=== PATIENT | male | born 1965 | race African-American/Black ===

== ENCOUNTER 2017-05-08 21:40 | Emergency (ER) | payer OTHER ==
[~2017-05-08] VITALS: Ht 175.3 cm; Wt 54.0 kg
[~2017-05-08 21:40] MED LIST: AMLO10TA2 PO; ASPI-110 PO; CLON0.3T PO; HYDR-3533 PO; HYDR25TA35 PO; LISI-515 PO; METO100T PO; PRAV20TA2 PO
[2017-05-08 21:44] VITALS: BP 195/103; PULSE 65; RESP 16; TEMP 97.6; O2SAT 99
== END 2017-05-08 23:30 | disposition left against medical advice (07) ==
LOC: NED 21:40
DX: G98.8 Other disorders of nervous system (principal)
CPT/HCPCS: 99281

== ENCOUNTER 2017-05-30 21:04 | Inpatient (IN) | payer OTHER ==
[~2017-05-30] VITALS: Ht 175.3 cm; Wt 67.9 kg
[2017-05-30 21:11] VITALS: BP 221/132; PULSE 82; RESP 18; TEMP 98.3; O2SAT 99
[2017-05-30 21:22] VITALS: BP 213/106; PULSE 84; RESP 16; O2SAT 99
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
[2017-05-30 21:29] VITALS: BP 191/101
[2017-05-30] MEDS ORDERED: SODIUM CHLORIDE 0.9% FLUSH 5 ML FLUSH IV FLUSH PRN (21:30)
[2017-05-30] MEDS ORDERED: LABETALOL HCL 100 MG/20 ML VIAL IV PUSH ONE (21:30)
[2017-05-30 21:38] VITALS: O2SAT 99
[2017-05-30 21:45] VITALS: BP 195/102; PULSE 76; RESP 16; O2SAT 99
--- NOTE | 2017-05-30 21:45 | RADRPT ---
EXAM DATE/TIME: 05/30/2017 21:27 [facility] COMPARISON: CT BRAIN W/O CONTRAST, March 28, 2016, 13:13. INDICATIONS : Altered mental status. RADIATION DOSE: 56.35 CTDIvol (mGy) MEDICAL HISTORY : Seizures. Hypertension. Aneurysm, intracranial.Intracranial hemorrhage. Hydrocephalus. SURGICAL HISTORY : Intracranial aneurysm repair. 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 ENCOUNTER: Initial ACUITY: 1 day PAIN SCALE: 0/10 LOCATION: cranial TECHNIQUE: Multiple contiguous axial images were obtained of the head. Using automated exposure control and adj ustment of the mA and/or kV according to patient size, radiation dose was kept as low as reasonably a chievable to obtain optimal diagnostic quality images. DICOM format image data is available electro nically for review and comparison. FINDINGS: Comparison is to 2016. Right frontal ventriculostomy tube is unchanged. There is stable encephalomala guillermo around the track of the ventriculostomy and remote infarct right basal ganglia. There is a new ar ea of decreased attenuation in the left parietal lobe that may represent a subacute infarct. Ventricu lar size is stable. Aneurysm clips noted in the suprasellar region. No acute intracranial hemorrhage identified. No acute bony abnormalities. CONCLUSION: 1. No area of decreased attenuation in the left parietal lobe measuring 2.7 cm in diameter. Primary d ifferential diagnosis is subacute infarct. 2. Stable changes of aneurysm clipping, right frontal ventriculostomy tube and stable ventricular siz e. Wiley Markham MD on May 30, 2017 at 21:39 Board Certified Radiologist. This report was verified electronically.
[2017-05-30] MEDS ORDERED: niCARdipine INJ 25 MG in SODIUM CHLOR 0.9% 250 ML INJ 250 ML IV ONE (22:00)
[2017-05-30 22:14] LABS: AUTOMATED NEUTROPHIL # 4.6 TH/MM3 (1.8-7.7); BASOPHIL % 0.6 % (0.0-2.0); EOSINOPHIL # 0.1 TH/MM3 (0-0.4); HEMATOCRIT 43.4 % (39.0-51.0); HEMO FLAGS DIFF FINAL; LYMPHOCYTE # 2.5 TH/MM3 (1.0-4.8); MEAN CELL VOLUME 93.7 FL (80.0-100.0); MEAN CORPUSCULAR HEMOGLOBIN 32.2 PG (27.0-34.0); MEAN CORPUSCULAR HGB CONC 34.3 % (32.0-36.0); MONO % 8.1 % (0.0-8.0); NEUT % 58.3 % (16.0-70.0); PLATELET COUNT 259 TH/MM3 (150-450); RED BLOOD COUNT 4.63 MIL/MM3 (4.50-5.90); RED CELL DISTRIBUTION WIDTH 14.4 % (11.6-17.2); WHITE BLOOD COUNT 7.9 TH/MM3 (4.0-11.0)
[2017-05-30 22:18] LABS: BACTERIA, URINE RARE /hpf; BLOOD, URINE SMALL (NEG); COMMENT (UR) CATH-CULTURE IND; CULTURE IF INDICATED CATH CULTURE IND; GLUCOSE,URINE NEG (NEG); HYALINE CAST, URINE 3 /lpf (RARE); KETONE, URINE 40 mg/dL (NEG); MUCUS URINE FEW /lpf (OCC); NITRITE,URINE NEG (NEG); PH, URINE 5.5 (5.0-8.5); SQUAMOUS EPITHELIAL CELL URINE <1 /hpf (0-5); URINE COLOR YELLOW (YELLW/STRAW)
[2017-05-30 22:25] LABS: APTT (PATIENT) 30.9 SEC (24.3-30.1); PROTHROMBIN TIME - PATIENT 11.1 SEC (9.8-11.6)
--- NOTE | 2017-05-30 22:33 | RADRPT ---
EXAM DATE/TIME: 05/30/2017 21:50 [facility] COMPARISON: CHEST SINGLE AP, March 01, 2016, 9:52. INDICATIONS : Short of breath MEDICAL HISTORY : Seizures. Hypertension. Aneurysm, intracranial. Intracranial hemorrhage; SURGICAL HISTORY : Intracranial aneurysm repair. 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 ENCOUNTER: Initial ACUITY: 1 day PAIN SCORE: 0/10 LOCATION: Bilateral chest FINDINGS: A single view of the chest demonstrates shunt tubing overlying the right hemithorax. No focal consoli dation or significant effusion. No pneumothorax. CONCLUSION: 1. No active disease. Wiley Markham MD on May 30, 2017 at 22:29 Board Certified Radiologist. This report was verified electronically.
[2017-05-30 22:50] LABS: ALKALINE PHOSPHATASE 136 U/L (45-117); ALT (GPT) 25 U/L (12-78); ANION GAP 11 MEQ/L (5-15); AST (GOT) 11 U/L (15-37); BICARBONATE 26.8 MEQ/L (21.0-32.0); BLOOD UREA NITROGEN 12 MG/DL (7-18); CHLORIDE 103 MEQ/L (98-107); GLOMERULAR FILTRATION RATE 90 ML/MIN (>89); MAGNESIUM 2.4 MG/DL (1.5-2.5); SODIUM (NA) 141 MEQ/L (136-145); TOTAL BILIRUBIN ADULT 0.4 MG/DL (0.2-1.0)
--- NOTE | 2017-05-30 22:50 | HHI.HP ---
HPI Service Critical Care Medicine Primary Care Physician Unknown Admission Diagnosis hypertensive emergnecy, ams, subacute CVA Diagnosis: Travel History International Travel<30 Days: No Contact w/Intl Traveler <30 Da: No Traveled to Known Affected Are: No History of Present Illness 51-year-old male presents for altered mental status. The patient started with altered mental status last night. His son came to visit him today and was told by his nephew that he was altered. 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 Patient was hypertensive and was placed on a Cardene drip. At that time. The patient has been doing well and was oriented until last night. The patient does not answer any question appropriately including his name and does not know where he is. The patient's daughter at the bedside admits that patient was here with the same symptoms 2 weeks ago, however while awaiting ER evaluation in the triage he returned to his baseline and was oriented 3 and demand to leave. 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 COUNSELOR shunt Reported Medications Reported Meds & Active Scripts Active Lortab (Hydrocodone-Acetaminophen) 5-325 Mg Tab 1 Tab PO TID PRN Hydralazine (Hydralazine HCl) 25 Mg Tab 75 Mg PO TID 30 Days Take with a meal Aspirin 81 (Aspirin) 81 Mg Tabdr 81 Mg PO DAILY Pravastatin 20 Mg Tab 20 Mg PO HS Amlodipine (Amlodipine Besylate) 10 Mg Tab 10 Mg PO DAILY Clonidine (Clonidine HCl) 0.3 Mg Tab 0.3 Mg PO Q8HR Metoprolol Tartrate 100 Mg Tab 100 Mg PO BID Lisinopril 20 Mg Tab 20 Mg PO BID Active Ordered Medications Current Medications Medications (Trade) Dose Ordered Sig/Edmundo Route PRN Reason Start Time Stop Time Status Last Admin Dose Admin IV Flush (NS Flush) 2 ml UNSCH PRN IV FLUSH FLUSH AFTER USING IV ACCESS 05/30/17 21:30 05/30/17 21:41 Amlodipine Besylate (Norvasc) 10 mg DAILY PO 05/31/17 09:00 Aspirin (Ecotrin Ec) 81 mg DAILY PO 05/31/17 09:00 Clonidine (Catapres) 0.3 mg Q8HR PO 05/31/17 06:00 Acetaminophen/ Hydrocodone Bitart (Randolph 5-325 Mg) 1 tab TID PRN PO PAIN 05/30/17 23:00 Metoprolol Tartrate (Lopressor) 100 mg BID PO 05/31/17 09:00 Pravastatin Sodium (Pravachol) 20 mg HS PO 05/31/17 21:00 Sodium Chloride 1,000 ml @ 84 mls/hr [id number] IV 05/30/17 22:50 05/31/17 00:34 Sodium Chloride (NS Flush) 2 ml UNSCH PRN .XX FLUSH AFTER USING IV ACCESS 05/30/17 23:00 Sodium Chloride (NS Flush) 2 ml BID .XX 05/31/17 09:00 Acetaminophen (Tylenol) 650 mg Q6H PRN PO PAIN 1-10 AND/OR FEVER >101F 05/30/17 23:00 Morphine Sulfate (Morphine Inj) 2 mg Q2H PRN IV PAIN SCALE 6 TO 10 05/30/17 23:00 Famotidine (Pepcid Inj) 20 mg Q12HR IV PUSH 05/31/17 09:00 Ondansetron HCl (Zofran Inj) 4 mg Q6H PRN IV NAUSEA OR VOMITING 05/30/17 23:00 Albuterol/ Ipratropium (Duoneb Neb) 1 ampule Q2HR NEB PRN INH WHEEZING 05/30/17 23:00 Miscellaneous Information 1 Q361D XX 05/30/17 23:00 Chlorhexidine Gluconate (Chlorhexidine 2% Cloth) 3 pack Taper DAILY@04 TOP 05/31/17 04:00 05/27/18 03:59 Chlorhexidine Gluconate (Chlorhexidine 2% Cloth) 3 pack UNSCH PRN TOP HYGIENIC CARE 05/30/17 23:00 Senna/Docusate Sodium (Zaida-Colace) 1 tab BID PO 05/31/17 09:00 Magnesium Hydroxide (Milk Of Magnesia Liq) 30 ml Q12H PRN PO MILD - MODERATE CONSTIPATION 05/30/17 23:00 Sennosides (Senokot) 17.2 mg Q12H PRN PO MODERATE - SEVERE CONSTIPATION 05/30/17 23:00 Bisacodyl (Dulcolax Supp) 10 mg DAILY PRN RECTAL SEVERE CONSITIPATION 05/30/17 23:00 Lactulose (Lactulose Liq) 30 ml DAILY PRN PO SEVERE CONSITIPATION 05/30/17 23:00 Levetriacetam 100 ml @ 400 mls/hr Q12HR IV 05/31/17 09:00 Hydralazine HCl (Apresoline Inj) 20 mg Q4H PRN IV PUSH SBP>160, DBP>90 05/30/17 23:00 Labetalol HCl (Trandate Inj) 10 mg Q4H PRN IV PUSH SBP>160, DBP>90 05/30/17 23:00 Potassium Chloride 100 ml @ 50 mls/hr Q2H IV 05/30/17 23:00 05/31/17 02:59 05/31/17 00:34 Heparin Sodium (Porcine) (Heparin Inj) 5,000 units Q12HR SQ 05/31/17 09:00 Family History No family history of early coronary artery disease or malignancy Social History Remote history of cocaine and ecstasy use No known history of tobacco or alcoholism Physical Exam Vital Signs Vital Signs Date Time Temp Pulse Resp B/P (MAP) Pulse Ox O2 Delivery O2 Flow Rate FiO2 05/30/17 22:24 92 192/111 05/30/17 21:45 76 16 195/102 (133) 99 Room Air 05/30/17 21:38 99 Room Air 05/30/17 21:29 191/101 (131) 05/30/17 21:22 84 16 213/106 (141) 99 Room Air 05/30/17 21:16 99 Room Air 05/30/17 21:11 98.3 82 18 221/132 (161) 99 Physical Exam GENERAL: Well-nourished, well-developed patient. Extremely confused SKIN: Warm and dry. HEAD: Normocephalic. EYES: No scleral icterus. No injection or drainage. NECK: Supple, trachea midline. No JVD or lymphadenopathy. CARDIOVASCULAR: Regular rate and rhythm without murmurs, gallops, or rubs. RESPIRATORY: Breath sounds equal bilaterally. No accessory muscle use. GASTROINTESTINAL: Abdomen soft, non-tender, nondistended. MUSCULOSKELETAL: No cyanosis, or edema. BACK: Nontender without obvious deformity. NEURO EXAM: GCS: M 6 V4 E4 Mental Status: The patient is confused, not oriented to place time or person Cranial Nerves: Pupils are round, reactive to light. Extraocular movements are intact without ptosis. Hearing is normal bilaterally. Voice is normal. Tongue protrudes midline and moves symmetrically. Reflexes: Biceps, patellar, and Achilles are 2/4 bilaterally. No clonus. Sensation: Unable to examine Motor: Good muscle tone. Strength is 5/5 bilaterally. Laboratory Laboratory Tests Test 05/30/17 21:20 05/30/17 21:40 05/30/17 21:48 White Blood Count 7.9 Red Blood Count 4.63 Hemoglobin 14.9 Hematocrit 43.4 Mean Corpuscular Volume 93.7 Mean Corpuscular Hemoglobin 32.2 Mean Corpuscular Hemoglobin Concent 34.3 Red Cell Distribution Width 14.4 Platelet Count 259 Mean Platelet Volume 8.1 Neutrophils (%) (Auto) 58.3 Lymphocytes (%) (Auto) 32.0 Monocytes (%) (Auto) 8.1 Eosinophils (%) (Auto) 1.0 Basophils (%) (Auto) 0.6 Neutrophils # (Auto) 4.6 Lymphocytes # (Auto) 2.5 Monocytes # (Auto) 0.6 Eosinophils # (Auto) 0.1 Basophils # (Auto) 0.0 CBC Comment DIFF FINAL Differential Comment Prothrombin Time 11.1 Prothromb Time International Ratio 1.0 Activated Partial Thromboplast Time 30.9 Urine Color YELLOW Urine Turbidity CLEAR Urine pH 5.5 Urine Specific [place] 1.022 Urine Protein TRACE Urine Glucose (UA) NEG Urine Ketones 40 Urine Occult Blood SMALL Urine Nitrite NEG Urine Bilirubin NEG Urine Urobilinogen LESS THAN 2.0 Urine Leukocyte Esterase NEG Urine RBC 3 Urine WBC 2 Urine Squamous Epithelial Cells <1 Urine Bacteria RARE Urine Hyaline Casts 3 Urine Mucus FEW Urine Sperm RARE Microscopic Urinalysis Comment CATH-CULTURE IND Urine Opiates Screen NEG Urine Barbiturates Screen NEG Urine Amphetamines Screen NEG Urine Benzodiazepines Screen NEG Urine Cocaine Screen NEG Urine Cannabinoids Screen POS Lactic Acid Level 1.2 Ammonia 24 Date/Time Source Procedure Growth Status 05/30/17 21:40 Urine Catheterized Urine Urine Culture Pending Received Result Diagram: 05/30/172119 Imaging Last [address] 05/30/172121 Signed Impressions: Service Date/Time: Tuesday, May 30, 2017 21:27 - CONCLUSION: 1. No area of decreased attenuation in the left parietal lobe measuring 2.7 cm in diameter. Primary differential diagnosis is subacute infarct. 2. Stable changes of aneurysm clipping, right frontal ventriculostomy tube and stable ventricular size. Wiley Markham MD Chest X-Ray 05/30/172121 Signed Impressions: Service Date/Time: Tuesday, May 30, 2017 21:50 - CONCLUSION: 1. No active disease. Wiley Markham MD Caprini VTE Risk Assessment Caprini VTE Risk Assessment: Mod/High Risk (score >= 2) Caprini Risk Assessment Model Point Value = 1 Point Value = 2 Point Value = 3 Point Value = 5 Age 41-60 Minor surgery BMI > 25 kg/m2 Swollen legs Varicose veins or History of unexplained or recurrent spontaneous Oral contraceptives or hormone replacement Sepsis (< 1 month) Serious lung disease, including pneumonia (< 1 month) Abnormal pulmonary function Acute myocardial infarction Congestive heart failure (< 1 month) History of inflammatory bowel disease Medical patient at bed rest Age 61-74 Arthroscopic surgery Major open surgery (> 45 min) Laparoscopic surgery (> 45 min) Malignancy Confined to bed (> 72 hours) Immobilizing plaster cast Central venous access Age >= 75 History of VTE Family history of VTE Factor V Leiden Prothrombin [id number] Lupus anticoagulant Anticardiolipin antibodies Elevated serum homocysteine Heparin-induced thrombocytopenia Other congenital or acquired thrombophilia Stroke (< 1 month) Elective arthroplasty Hip, pelvis, or leg fracture Acute spinal cord injury (< 1 month) Prophylaxis Regimen Total Risk Factor Score Risk Level Prophylaxis Regimen 0-1 Low Early ambulation 2 Moderate Order ONE of the following: *Sequential Compression Device (SCD) *Heparin 5000 units SQ BID 3-4 Higher Order ONE of the following medications: *Heparin 5000 units SQ TID *Enoxaparin/Lovenox 40 mg SQ daily (WT < 150 kg, CrCl > 30 mL/min) *Enoxaparin/Lovenox 30 mg SQ daily (WT < 150 kg, CrCl > 10-29 mL/min) *Enoxaparin/Lovenox 30 mg SQ BID (WT < 150 kg, CrCl > 30 mL/min) AND/OR *Sequential Compression Device (SCD) 5 or more Highest Order ONE of the following medications: *Heparin 5000 units SQ TID (Preferred with Epidurals) *Enoxaparin/Lovenox 40 mg SQ daily (WT < 150 kg, CrCl > 30 mL/min) *Enoxaparin/Lovenox 30 mg SQ daily (WT < 150 kg, CrCl > 10-29 mL/min) *Enoxaparin/Lovenox 30 mg SQ BID (WT < 150 kg, CrCl > 30 mL/min) AND *Sequential Compression Device (SCD) Assessment and Plan Assessment and Plan Altered mental status - Subacute stroke - Keppra seizure prophylaxis - MRI brain - EEG to rule out subclinical seizure and postictal state - Neurology consult - Hypertensive encephalopathy??? Hypertension - Cardene drip - Hydralazine and labetalol when necessary - SBP goal 170-180 Hypokalemia - Electrolytes replacement per ICU protocol DVT GI prophylaxis - Teds SCDs - Subcutaneous heparin and Pepcid Critical Care: The total critical care time was 35 minutes. Time to perform other separately billable procedures was not included in the critical care time. Adria Lees MD May 30, 2017 22:50
[2017-05-30 22:56] LABS: ALCOHOL 4 MG/DL (0-5); CREATINE KINASE 81 U/L (39-308)
[2017-05-30 22:58] LABS: POTASSIUM 2.9 MEQ/L (3.5-5.1)
[2017-05-30] MEDS ORDERED: MORPHINE SULFATE 4 MG/ML INJ IV PRN (23:00)
[2017-05-30] MEDS ORDERED: LABETALOL HCL 100 MG/20 ML VIAL IV PUSH PRN (23:00)
[2017-05-30] MEDS ORDERED: ONDANSETRON HCL 4 MG/2 ML VIAL IV PRN (23:00)
[2017-05-30] MEDS ORDERED: LACTULOSE SYRUP 20 GM/30 ML CUP PO PRN (23:00)
[2017-05-30] MEDS ORDERED: hydrALAZINE HCL 20 MG/ML VIAL IV PUSH PRN (23:00)
[2017-05-30] MEDS ORDERED: HEPARIN SODIUM - SQ 10,000 UNITS/ML VIAL SQ SCH (23:00)
[2017-05-30] MEDS ORDERED: SENNOSIDES 8.6 MG TAB PO PRN (23:00)
[2017-05-30] MEDS ORDERED: BISACODYL 10 MG SUPP RECTAL PRN (23:00)
[2017-05-30] MEDS ORDERED: ACETAMINOPHEN/HYDROcodone 325 MG/5 MG TAB PO PRN (23:00)
[2017-05-30] MEDS ORDERED: SODIUM CHLORIDE 0.9% FLUSH 10 ML FLUSH PRN (23:00)
[2017-05-30] MEDS ORDERED: MAGNESIUM HYDROXIDE SUSP 30 ML CUP PO PRN (23:00)
[2017-05-30] MEDS ORDERED: CHLORHEXIDINE GLUCONATE 2 % 1 PACK (2 CLOTHS) TOP PRN (23:00)
[2017-05-30] MEDS ORDERED: RESP: ALBUTEROL 2.5 MG/IPRATROPIUM 0.5 MG NEB (PRN) INH (23:00)
[2017-05-30] MEDS ORDERED: ACETAMINOPHEN 325 MG TAB PO PRN (23:00)
[2017-05-30] MEDS ORDERED: MISCELLANEOUS NURSING INFORMATION XX SCH (23:00)
[2017-05-31] VITALS (14 sets, daily range): BP systolic 132–196; BP diastolic 65–104; PULSE 69–91; RESP 15–25; TEMP 98–98.9; O2SAT 97–98
[2017-05-31] MEDS: POTASSIUM CHLOR 20 MEQ PREMIX 100 ML IV SCH ×2 (00:34→02:40)
[2017-05-31] MEDS: SODIUM CHLOR 0.9% 1000 ML INJ 1,000 ML IV SCH ×2 (00:34→18:33)
[2017-05-31] MEDS ORDERED: POTASSIUM CHLOR 20 MEQ PREMIX 100 ML IV PRN ×2 (02:15)
[2017-05-31] MEDS ORDERED: MAGNESIUM OXIDE 400 MG TAB PO PRN (02:15)
[2017-05-31] MEDS ORDERED: SODIUM PHOSPHATE INJ 30 MMOL in SODIUM CHLOR 0.9% 250 ML INJ 240 ML IV PRN (02:15)
[2017-05-31] MEDS ORDERED: POTASSIUM PHOSPHATE MONOBASIC 500 MG TAB PO/TUBE PRN (02:15)
[2017-05-31] MEDS ORDERED: MAGNESIUM SULFATE INJ 2 GM in SODIUM CHLORIDE 0.9% INJ 96 ML IV PRN (02:15)
[2017-05-31] MEDS ORDERED: POTASSIUM PHOSPHATE MONOBASIC 500 MG TAB PO PRN (02:15)
[2017-05-31] MEDS ORDERED: POTASSIUM PHOSPHATE INJ 30 MMOL in SODIUM CHLOR 0.9% 250 ML INJ 250 ML IV PRN (02:15)
[2017-05-31] MEDS ORDERED: POTASSIUM CHLORIDE 25 MEQ EFFERVESCENT TAB PO PRN (02:15)
[2017-05-31] MEDS ORDERED: POTASSIUM CHLOR 40 MEQ PREMIX 100 ML IV PRN ×2 (02:15)
[2017-05-31] MEDS ORDERED: MAGNESIUM SULFATE INJ 4 GM in SODIUM CHLORIDE 0.9% INJ 92 ML IV PRN (02:15)
[2017-05-31] MEDS ORDERED: SODIUM CHLOR 0.9% 250 ML INJ 250 ML ONE ×2 (02:31→06:12)
[2017-05-31] MEDS: CHLORHEXIDINE GLUCONATE 2 % 1 PACK (2 CLOTHS) TOP SCH (04:00)
[2017-05-31 04:30] LABS: AUTOMATED NEUTROPHIL # 5.1 TH/MM3 (1.8-7.7); BASOPHIL # 0.1 TH/MM3 (0-0.2); BASOPHIL % 0.6 % (0.0-2.0); EOSINOPHIL # 0.1 TH/MM3 (0-0.4); EOSINOPHIL % 1.4 % (0.0-4.0); HEMATOCRIT 43.9 % (39.0-51.0); HEMO FLAGS DIFF FINAL; LYMPH % 33.6 % (9.0-44.0); MEAN CELL VOLUME 93.7 FL (80.0-100.0); MEAN CORPUSCULAR HEMOGLOBIN 31.4 PG (27.0-34.0); MEAN CORPUSCULAR HGB CONC 33.5 % (32.0-36.0); MONO % 7.5 % (0.0-8.0); NEUT % 56.9 % (16.0-70.0); PLATELET COUNT 285 TH/MM3 (150-450); RED BLOOD COUNT 4.69 MIL/MM3 (4.50-5.90); RED CELL DISTRIBUTION WIDTH 14.2 % (11.6-17.2)
[2017-05-31] MEDS ORDERED: niCARdipine INJ 25 MG in SODIUM CHLOR 0.9% 250 ML INJ 250 ML IV PRN (04:30)
[2017-05-31] MEDS: niCARdipine INJ 25 MG in SODIUM CHLOR 0.9% 250 ML INJ 250 ML IV PRN ×2 (04:37→06:16)
[2017-05-31 04:56] LABS: ANION GAP 7 MEQ/L (5-15); AST (GOT) 10 U/L (15-37); BICARBONATE 27.7 MEQ/L (21.0-32.0); BLOOD UREA NITROGEN 10 MG/DL (7-18); CHLORIDE 105 MEQ/L (98-107); GLOMERULAR FILTRATION RATE 108 ML/MIN (>89); MAGNESIUM 2.4 MG/DL (1.5-2.5); POTASSIUM 3.3 MEQ/L (3.5-5.1); SODIUM (NA) 140 MEQ/L (136-145)
[2017-05-31 04:57] LABS: ALT (GPT) 25 U/L (12-78)
[2017-05-31 05:00] LABS: ALKALINE PHOSPHATASE 139 U/L (45-117); TOTAL BILIRUBIN ADULT 0.4 MG/DL (0.2-1.0)
[2017-05-31] MEDS: cloNIDine HCL 0.3 MG TAB PO SCH ×4 (06:00→21:12)
--- NOTE | 2017-05-31 08:25 | EKG ---
Date Performed: 05/30/2017 Time Performed: 21:15:46 PTAGE: 51 years EKG: Sinus rhythm LEFT VENTRICULAR HYPERTROPHY AND ST-T CHANGE ABNORMAL ECG PREVIOUS TRACING : 02/01/2016 12.18 Compared to previous tracing, QRS voltage has increased dif fusely. DOCTOR: Sergey Ventura Interpretating Date/Time 05/31/2017 08:24:02
[2017-05-31] MEDS: SODIUM CHLORIDE 0.9% FLUSH 10 ML FLUSH SCH ×2 (08:49→21:00)
[2017-05-31] MEDS: HEPARIN SODIUM - SQ 10,000 UNITS/ML VIAL SQ SCH ×2 (08:49→21:13)
[2017-05-31] MEDS: FAMOTIDINE 20 MG/2 ML VIAL IV PUSH SCH ×2 (08:49→21:12)
[2017-05-31] MEDS: levETIRAcetam 1000 MG INJ 100 ML IV SCH ×2 (08:50→21:12)
[2017-05-31 09:48] LABS: POTASSIUM 3.2 MEQ/L (3.5-5.1)
[2017-05-31 09:54] LABS: MAGNESIUM 2.2 MG/DL (1.5-2.5)
[2017-05-31] MEDS ORDERED: niCARdipine INJ 50 MG in SODIUM CHLOR 0.9% 250 ML INJ 250 ML IV PRN (10:00)
[2017-05-31] MEDS: ASPIRIN EC 81 MG TABEC PO SCH (11:11)
[2017-05-31] MEDS: DOCUSATE SODIUM 50 MG/SENNA 8.6 MG TAB PO SCH ×2 (11:11→21:13)
[2017-05-31] MEDS: METOPROLOL TARTRATE 100 MG TAB PO SCH ×2 (11:13→21:13)
--- NOTE | 2017-05-31 12:22 | MG ---
cc: VERITO MARADIAGA MD Lab No: Date: 05/31/2017 Age: 51 Sex: M Race: DATE OF [address] Diallo MEDICAL HISTORY History of hypertension. Cocaine and Ecstasy. Headaches. Syncope. History of frontal ventriculostomy tube, aneurysmal clipping. MEDICATIONS 1. Nicardipine. 2. Hydralazine. 3. Trandate. DESCRIPTION There is generalized slowing on the EEG recording with polymorphic low voltage, delta and theta. At times there is frontal intermittent rhythmic delta activity (FIRDA). There is T3 breach rhythm. Photic stimulation did not elicit a driving response. Hyperventilation was not done. There were no electrographic seizures or epileptiform discharges noted. INTERPRETATION This is an abnormal EEG.The generalized slowing may indicate an encephalopathic pattern. T3 breach rhythm may indicate structural abnormality or conductance defect. There is no epileptiform discharges or any ictal activity noted. Clinical correlation is recommended. Verito Maradiaga MD RGO/SSB /11:30 AM /12:12 PM [facility]
--- NOTE | 2017-05-31 16:59 | HHI.CCPN ---
Subjective Remarks/Hospital Course 05/30: 51-year-old male presents for altered mental status. The patient started with altered mental status last night. His son came to visit him today and was told by his nephew that he was altered. 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 Patient was hypertensive and was placed on a Cardene drip. At that time. The patient has been doing well and was oriented until last night. The patient does not answer any question appropriately including his name and does not know where he is. The patient's daughter at the bedside admits that patient was here with the same symptoms 2 weeks ago, however while awaiting ER evaluation in the triage he returned to his baseline and was oriented 3 and demand to leave. 05/31: Resting in bed. Still confused. Does not follow verbal commands however can imitate actions. Nonverbal. Objective Vital Signs Date Time Temp Pulse Resp B/P (MAP) Pulse Ox O2 Delivery O2 Flow Rate FiO2 05/31/17 12:00 81 05/31/17 12:00 98.6 15 160/78 (105) 98 05/31/17 08:00 Room Air Intake and Output 05/31/17 05/31/17 06/01/17 08:00 16:00 00:00 Intake Total 450 ml 360 ml Balance 450 ml 360 ml Result Diagram: 05/31/17 0417 05/31/17 0900 Imaging Last [address] 05/30/172121 Signed Impressions: Service Date/Time: Tuesday, May 30, 2017 21:27 - CONCLUSION: 1. No area of decreased attenuation in the left parietal lobe measuring 2.7 cm in diameter. Primary differential diagnosis is subacute infarct. 2. Stable changes of aneurysm clipping, right frontal ventriculostomy tube and stable ventricular size. Wiley Markham MD Chest X-Ray 05/30/172121 Signed Impressions: Service Date/Time: Tuesday, May 30, 2017 21:50 - CONCLUSION: 1. No active disease. Wiley Markham MD Objective Remarks GENERAL: Well-nourished, well-developed patient. Extremely confused SKIN: Warm and dry. HEAD: Normocephalic. EYES: No scleral icterus. No injection or drainage. NECK: Supple, trachea midline. No JVD or lymphadenopathy. CARDIOVASCULAR: Regular rate and rhythm without murmurs, gallops, or rubs. RESPIRATORY: Breath sounds equal bilaterally. No accessory muscle use. GASTROINTESTINAL: Abdomen soft, non-tender, nondistended. MUSCULOSKELETAL: No cyanosis, or edema. BACK: Nontender without obvious deformity. NEURO EXAM: GCS: M 6 V4 E4 Mental Status: The patient is confused, not oriented to place time or person Cranial Nerves: Pupils are round, reactive to light. Extraocular movements are intact without ptosis. Hearing is normal bilaterally. Voice is normal. Tongue protrudes midline and moves symmetrically. Not following verbal commands however can imitate actions.. Reflexes: Biceps, patellar, and Achilles are 2/4 bilaterally. No clonus. Sensation: Unable to examine Motor: Good muscle tone. Strength is 5/5 bilaterally. A/P Assessment and Plan Altered mental status - Subacute stroke - Keppra seizure prophylaxis - MRI brain - EEG to rule out subclinical seizure and postictal state - Neurology consulted, discussed with Dr. Polk this morning. - Hypertensive encephalopathy??? Hypertension - Cardene drip - Hydralazine and labetalol when necessary. Resume amlodipine. - SBP goal 170-180 Hypokalemia - Electrolytes replacement per ICU protocol DVT GI prophylaxis - Teds SCDs - Subcutaneous heparin and Pepcid Critical Care: The total critical care time was 35 minutes. Time to perform other separately billable procedures was not included in the critical care time. Jm Frost MD May 31, 2017 16:58
[2017-05-31] MEDS: hydrALAZINE HCL 25 MG TAB PO SCH (18:07)
[2017-05-31] MEDS ORDERED: SODIUM CHLORIDE 0.9% FLUSH 5 ML FLUSH IV FLUSH PRN (18:15)
[2017-05-31] MEDS ORDERED: DEXTROSE 50% IN WATER 50 ML VIAL(D50) IV PUSH PRN (18:15)
[2017-05-31] MEDS ORDERED: GLUCAGON 1 MG/ML VIAL OTHER PRN (18:15)
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
[2017-05-31] MEDS ORDERED: SODIUM CHLORIDE 0.9% FLUSH 5 ML FLUSH IV FLUSH SCH (21:00)
[2017-05-31] MEDS: INSULIN ASPART SUPPLEMENTAL SCALE SQ SCH (21:00)
[2017-05-31] MEDS: PRAVASTATIN SOD 20 MG TAB PO SCH (21:13)
[2017-05-31 22:34] LABS: HEMOGLOBIN A1a 1.1 %; HEMOGLOBIN A1b 1.7 %; HEMOGLOBIN Ao 86.2 %; HEMOGLOBIN LA1C 1.4 %; HEMOGLOBIN P3 3.5 %
[2017-06-01] VITALS (13 sets, daily range): BP systolic 137–191; BP diastolic 70–84; PULSE 55–82; RESP 12–40; TEMP 98–98.8; O2SAT 96–100
[2017-06-01] MEDS: CHLORHEXIDINE GLUCONATE 2 % 1 PACK (2 CLOTHS) TOP SCH (04:00)
[2017-06-01 05:20] LABS: HDL CHOLESTEROL 42.7 MG/DL (40.0-60.0)
[2017-06-01] MEDS: cloNIDine HCL 0.3 MG TAB PO SCH ×3 (05:37→21:08)
[2017-06-01] MEDS: INSULIN ASPART SUPPLEMENTAL SCALE SQ SCH ×3 (07:00→15:48)
[2017-06-01] MEDS: METOPROLOL TARTRATE 100 MG TAB PO SCH ×2 (08:17→21:08)
[2017-06-01] MEDS: hydrALAZINE HCL 25 MG TAB PO SCH ×3 (08:17→18:00)
[2017-06-01] MEDS: levETIRAcetam 1000 MG INJ 100 ML IV SCH ×2 (08:17→21:10)
[2017-06-01] MEDS: DOCUSATE SODIUM 50 MG/SENNA 8.6 MG TAB PO SCH ×2 (08:18→21:08)
[2017-06-01] MEDS: ASPIRIN EC 81 MG TABEC PO SCH (08:18)
[2017-06-01] MEDS: HEPARIN SODIUM - SQ 10,000 UNITS/ML VIAL SQ SCH ×2 (08:19→21:09)
[2017-06-01] MEDS: SODIUM CHLORIDE 0.9% FLUSH 10 ML FLUSH SCH ×2 (08:20→21:10)
[2017-06-01] MEDS: FAMOTIDINE 20 MG/2 ML VIAL IV PUSH SCH ×2 (08:20→21:09)
--- NOTE | 2017-06-01 09:29 | PD.CONS ---
HPI Service CV Consult Requested By Reason for Consult CVA Primary Care Physician Unknown History of Present Illness Here with history of CVA and cerebral aneurysm coiled in 2016 s/p HEALTH ANALYTICS CONSULTANT shunt who presents with acute inability to talk. Now he can not tell me where he is, what year it is or who is the POTUS. He is unable to answer any of my questions. He is in sinus rhythm this morning. He is not on telemetry. (Jonah Nuñez) Review of Systems ROS Limitations: Clinical Condition (Jonah Nuñez) Past Family Social History Allergies: Coded Allergies: penicillin G (Unverified Allergy, Intermediate, RASH/ITCHING, 05/30/17) lisinopril (Verified Adverse Reaction, Severe, Anaphylaxis, 05/31/17) angioedema Uncoded Allergies: PCN / rash / itching (Allergy, Mild, 02/14/16) Pt states he has an allergy to PCN / will verify with Past Medical History see HPI Remote history of cocaine and ecstasy use as per chart review LORRAINE aneurysm rupture with obstructive hydrocephalus in January 2016 Past Surgical History see HPI Reported Medications Reported Meds & Active Scripts Active Lortab (Hydrocodone-Acetaminophen) 5-325 Mg Tab 1 Tab PO TID PRN Hydralazine (Hydralazine HCl) 25 Mg Tab 75 Mg PO TID 30 Days Take with a meal Aspirin 81 (Aspirin) 81 Mg Tabdr 81 Mg PO DAILY Pravastatin 20 Mg Tab 20 Mg PO HS Amlodipine (Amlodipine Besylate) 10 Mg Tab 10 Mg PO DAILY Clonidine (Clonidine HCl) 0.3 Mg Tab 0.3 Mg PO Q8HR Metoprolol Tartrate 100 Mg Tab 100 Mg PO BID Lisinopril 20 Mg Tab 20 Mg PO BID Active Ordered Medications Current Medications Medications (Trade) Dose Ordered Sig/Edmundo Route Start Time Stop Time Status Last Admin (Norvasc) 10 mg DAILY PO 05/31/17 09:00 06/01/17 08:18 (Ecotrin Ec) 81 mg DAILY PO 05/31/17 09:00 06/01/17 08:18 (Catapres) 0.3 mg Q8HR PO 05/31/17 06:00 06/01/17 05:37 ([place] 5-325 Mg) 1 tab TID PRN PO 05/30/17 23:00 (Lopressor) 100 mg BID PO 05/31/17 09:00 06/01/17 08:17 (Pravachol) 20 mg HS PO 05/31/17 21:00 05/31/17 21:13 Sodium Chloride 1,000 ml @ 84 mls/hr [id number] IV 05/30/17 22:50 05/31/17 18:33 (NS Flush) 2 ml UNSCH PRN .XX 05/30/17 23:00 (NS Flush) 2 ml BID .XX 05/31/17 09:00 05/31/17 08:49 (Tylenol) 650 mg Q6H PRN PO 05/30/17 23:00 (Morphine Inj) 2 mg Q2H PRN IV 05/30/17 23:00 (Pepcid Inj) 20 mg Q12HR IV PUSH 05/31/17 09:00 06/01/17 08:20 (Zofran Inj) 4 mg Q6H PRN IV 05/30/17 23:00 (Duoneb Neb) 1 ampule Q2HR NEB PRN INH 05/30/17 23:00 Miscellaneous Information 1 Q361D XX 05/30/17 23:00 (Chlorhexidine 2% Cloth) 3 pack Taper DAILY@04 TOP 05/31/17 04:00 05/27/18 03:59 06/01/17 04:00 (Chlorhexidine 2% Cloth) 3 pack UNSCH PRN TOP 05/30/17 23:00 (Zaida-Colace) 1 tab BID PO 05/31/17 09:00 06/01/17 08:18 (Milk Of Magnesia Liq) 30 ml Q12H PRN PO 05/30/17 23:00 (Senokot) 17.2 mg Q12H PRN PO 05/30/17 23:00 (Dulcolax Supp) 10 mg DAILY PRN RECTAL 05/30/17 23:00 (Lactulose Liq) 30 ml DAILY PRN PO 05/30/17 23:00 Levetriacetam 100 ml @ 400 mls/hr Q12HR IV 05/31/17 09:00 06/01/17 08:17 (Apresoline Inj) 20 mg Q4H PRN IV PUSH 05/30/17 23:00 05/31/17 04:19 (Trandate Inj) 10 mg Q4H PRN IV PUSH 05/30/17 23:00 05/31/17 03:44 (Heparin Inj) 5,000 units Q12HR SQ 05/31/17 09:00 06/01/17 08:19 Potassium Chloride 100 ml @ 50 mls/hr Q2H PRN IV 05/31/17 02:15 Potassium Chloride 100 ml @ 50 mls/hr Q2H PRN IV 05/31/17 02:15 (K-Lyte Cl Eff) 50 meq UNSCH PRN PO 05/31/17 02:15 Potassium Chloride 100 ml @ 25 mls/hr UNSCH PRN IV 05/31/17 02:15 Potassium Chloride 100 ml @ 50 mls/hr Q2H PRN IV 05/31/17 02:15 Magnesium Sulfate 4 gm/Sodium Chloride 100 ml @ 50 mls/hr UNSCH PRN IV 05/31/17 02:15 (Mag-Ox) 800 mg UNSCH PRN PO 05/31/17 02:15 Magnesium Sulfate 2 gm/Sodium Chloride 100 ml @ 50 mls/hr UNSCH PRN IV 05/31/17 02:15 (K-Phos) 2,000 mg Q4H PRN PO 05/31/17 02:15 Sodium Phosphate 30 mmol/Sodium Chloride 250 ml @ 42 mls/hr UNSCH PRN IV 05/31/17 02:15 (K-Phos) 2,000 mg UNSCH PRN PO/TUBE 05/31/17 02:15 Potassium Phosphate 30 mmol/ Sodium Chloride 260 ml @ 42 mls/hr UNSCH PRN IV 05/31/17 02:15 05/31/17 11:02 Nicardipine HCl 50 mg/Sodium Chloride 270 ml @ 27 mls/hr TITRATE PRN IV 05/31/17 10:00 05/31/17 08:35 (Apresoline) 75 mg TID PO 05/31/17 18:00 06/01/17 08:17 (NovoLOG SUPPLEMENTAL SCALE) 1 ACHS SQ 05/31/17 21:00 (D50w (Vial) Inj) 50 ml UNSCH PRN IV PUSH 05/31/17 18:15 (Glucagon Inj) 1 mg UNSCH PRN OTHER 05/31/17 18:15 Family History unobtainable Social History unobtainable (Jonah Nuñez) Physical Exam Vital Signs Vital Signs Date Time Temp Pulse Resp B/P (MAP) Pulse Ox O2 Delivery O2 Flow Rate FiO2 06/01/17 07:00 98 Room Air 06/01/17 06:00 68 06/01/17 04:00 98.0 62 12 167/80 (109) 96 06/01/17 04:00 65 06/01/17 02:00 70 06/01/17 00:00 98.1 60 20 145/74 (97) 98 06/01/17 00:00 69 05/31/17 22:00 72 05/31/17 20:00 98.0 80 25 132/74 (93) 97 05/31/17 20:00 80 05/31/17 19:00 95 Room Air 05/31/17 18:00 75 05/31/17 17:00 82 164/91 05/31/17 16:00 98.7 69 17 153/92 (112) 98 05/31/17 16:00 69 05/31/17 15:15 87 163/81 05/31/17 14:45 78 154/85 05/31/17 14:00 78 05/31/17 12:15 82 141/70 05/31/17 12:00 81 05/31/17 12:00 98.6 82 15 160/78 (105) 98 05/31/17 10:57 96 142/78 05/31/17 10:00 91 Physical Exam GENERAL: Well-nourished, well-developed patient in no apparent distress. Confused NECK: No JVD. No carotid bruit. CARDIOVASCULAR: Regular rate and rhythm. S1/S2 no murmur, rub, or gallop. RESPIRATORY: No accessory muscle use. Clear to auscultation. Breath sounds equal bilaterally. GASTROINTESTINAL: Abdomen soft, non-tender, nondistended. MUSCULOSKELETAL: Extremities without clubbing, cyanosis, or edema. Laboratory Laboratory Tests Test 05/31/17 16:51 06/01/17 04:37 Nasal Screen MRSA (PCR) MRSA NOT DETECTED Triglycerides Level 45 Cholesterol Level 124 LDL Cholesterol 72 HDL Cholesterol 42.7 Cholesterol/HDL Ratio 2.90 Date/Time Source Procedure Growth Status 05/30/17 21:40 Urine Catheterized Urine Urine Culture - Preliminary RESULTS PENDING Resulted (Jonah Nuñez) Result Diagram: 05/31/17 0417 05/31/17 0900 Assessment and Plan Problem List: (1) History of non-ST elevation myocardial infarction (NSTEMI) ICD Codes: I25.2 - Old myocardial infarction (2) Aortic regurgitation ICD Codes: I35.1 - Nonrheumatic aortic (valve) insufficiency Status: Acute (3) HTN (hypertension) ICD Codes: I10 - Essential (primary) hypertension Status: Chronic (4) HLD (hyperlipidemia) ICD Codes: E78.5 - Hyperlipidemia, unspecified Status: Chronic (5) CVA (cerebral vascular accident) ICD Codes: I63.9 - Cerebral infarction, unspecified Status: Acute Assessment and Plan CT suggest subacute CVA, will consider KEO. We would need to further evaluate mental status and further imaging would be helpful. Telemetry reveals sinus rhythm. (Jonah Nuñez) Assessment and Plan await MRI results for definitive diagnosis of CVA await for possible resolution of symptoms prior to invasive procedure possible KEO pending further workup if neuro feels strongly this is CVA. no arrhythmia on telemetry (David Chen MD) Problem Qualifiers (1) CVA (cerebral vascular accident): Qualified Codes: I63.9 - Cerebral infarction, unspecified Jonah Nuñez Jun 01, 2017 09:29 David Chen MD Jun 01, 2017 09:34
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
--- NOTE | 2017-06-01 14:25 | HHI.CCPN ---
Subjective Remarks/Hospital Course 05/30: 51-year-old male presents for altered mental status. The patient started with altered mental status last night. His son came to visit him today and was told by his nephew that he was altered. The patient has a history of ruptured cerebral aneurysm with status post coiling of LORRAINE aneurysm in January 2016, also ETL ANALYST shunt placement. Patient was hypertensive and was placed on a Cardene drip. At that time. The patient has been doing well and was oriented until last night. The patient does not answer any question appropriately including his name and does not know where he is. The patient's daughter at the bedside admits that patient was here with the same symptoms 2 weeks ago, however while awaiting ER evaluation in the triage he returned to his baseline and was oriented 3 and demand to leave. 05/31: Resting in bed. Still confused. Does not follow verbal commands however can imitate actions. Nonverbal. 06/01: Resting in bed comfortably. Still has a speech disturbance. Moves all 4 extremities. Objective Vital Signs Date Time Temp Pulse Resp B/P (MAP) Pulse Ox O2 Delivery O2 Flow Rate FiO2 06/01/17 12:00 70 06/01/17 12:00 98.4 40 191/84 (119) 100 06/01/17 07:00 Room Air Intake and Output 06/01/17 06/01/17 06/02/17 08:00 16:00 00:00 Intake Total 645 ml Output Total 600 ml Balance 45 ml Result Diagram: 05/31/17 0417 05/31/17 0900 Other Results Microbiology Date/Time Source Procedure Growth Status 05/30/17 21:40 Urine Catheterized Urine Urine Culture - Final NO GROWTH IN 48 HOURS. Complete Imaging Last [address] 05/30/172121 Signed Impressions: Service Date/Time: Tuesday, May 30, 2017 21:27 - CONCLUSION: 1. No area of decreased attenuation in the left parietal lobe measuring 2.7 cm in diameter. Primary differential diagnosis is subacute infarct. 2. Stable changes of aneurysm clipping, right frontal ventriculostomy tube and stable ventricular size. Wiley Markham MD Chest X-Ray 05/30/172121 Signed Impressions: Service Date/Time: Tuesday, May 30, 2017 21:50 - CONCLUSION: 1. No active disease. Wiley Markham MD Objective Remarks GENERAL: Well-nourished, well-developed patient. confused/ sensory aphasia SKIN: Warm and dry. HEAD: Normocephalic. EYES: No scleral icterus. No injection or drainage. NECK: Supple, trachea midline. No JVD or lymphadenopathy. CARDIOVASCULAR: Regular rate and rhythm without murmurs, gallops, or rubs. RESPIRATORY: Breath sounds equal bilaterally. No accessory muscle use. GASTROINTESTINAL: Abdomen soft, non-tender, nondistended. MUSCULOSKELETAL: No cyanosis, or edema. BACK: Nontender without obvious deformity. NEURO EXAM: GCS: M 6 V4 E4 Mental Status: The patient is confused, not oriented to place time or person Cranial Nerves: Pupils are round, reactive to light. Extraocular movements are intact without ptosis. Hearing is normal bilaterally. Voice is normal. Tongue protrudes midline and moves symmetrically. Not following verbal commands however can imitate actions.. Reflexes: Biceps, patellar, and Achilles are 2/4 bilaterally. No clonus. Sensation: Unable to examine Motor: Good muscle tone. Strength is 5/5 bilaterally. A/P Assessment and Plan Altered mental status - Subacute stroke - Keppra seizure prophylaxis - MRI brain - EEG to rule out subclinical seizure and postictal state - Neurology consulted, discussed with Dr. Polk this morning. - Hypertensive encephalopathy??? Hypertension - Off Cardene drip - Hydralazine and labetalol when necessary. Resumed amlodipine. - SBP goal 170-180 Hypokalemia - Electrolytes replacement per ICU protocol DVT GI prophylaxis - Teds SCDs - Subcutaneous heparin and Pepcid Further recommendations per neurology Will consult and transfer to hospitalist service for further medical management. Jm Frost MD Jun 01, 2017 14:25
--- NOTE | 2017-06-01 17:15 | ECHRPT ---
Indication: CVA/TIA CONCLUSIONS The left ventricular systolic function is hyperdynamic with an estimated ejection fraction in the ra nge of 65- 70%. Normal left ventricular size. Severe concentric left ventricular hypertrophy. No regional wall motion abnormalities are present. Aortic valve sclerosis is present. Mild to Moderate aortic valve regurgitation. Trivial pulmonary valve regurgitation. BP: / HR: Rhythm: Sinus Technical Quality:Good FINDINGS LEFT VENTRICLE The left ventricular systolic function is hyperdynamic with an estimated ejection fraction in the ra nge of 65- 70%. Normal left ventricular size. Severe concentric left ventricular hypertrophy. No regional wall motion abnormalities are present. RIGHT VENTRICLE Normal right ventricular size and systolic function. LEFT ATRIUM The left atrial size is normal. RIGHT ATRIUM The right atrial size is normal. ATRIAL SEPTUM Normal atrial septal thickness without atrial level shunting by limited color doppler interrogation. AORTA The aortic root and proximal ascending aorta are normal in size on limited imaging. MITRAL VALVE Structurally normal mitral valve. No mitral valve stenosis or regurgitation. AORTIC VALVE Aortic valve sclerosis is present. Moderate aortic valve regurgitation. TRICUSPID VALVE Structurally normal tricuspid valve. No tricuspid valve stenosis or regurgitation. PULMONARY VALVE Trivial pulmonary valve regurgitation. VESSELS The inferior vena cava is normal in size. PERICARDIUM No pericardial effusion. Abhijit Grimes MD (Electronically Signed) Final Date:01 June 2017 17:14
--- NOTE | 2017-06-01 17:17 | HHI.PR ---
Review/Management Diagnosis left MCA stroke with expressive aphasia Plan f/u cher, hypercoag labs. continue asa. monitor cardiac telemetry-r/o afib. Diagnosis/Plan: Subjective Subjective Comments No acute events reported speech without change. Active Medications Current Medications Medications (Trade) Dose Ordered Sig/Edmundo Route Start Time Stop Time Status Last Admin (Norvasc) 10 mg DAILY PO 05/31/17 09:00 06/01/17 08:18 (Ecotrin Ec) 81 mg DAILY PO 05/31/17 09:00 06/01/17 08:18 (Catapres) 0.3 mg Q8HR PO 05/31/17 06:00 06/01/17 15:48 ([place] 5-325 Mg) 1 tab TID PRN PO 05/30/17 23:00 (Lopressor) 100 mg BID PO 05/31/17 09:00 06/01/17 08:17 (Pravachol) 20 mg HS PO 05/31/17 21:00 05/31/17 21:13 Sodium Chloride 1,000 ml @ 84 mls/hr [id number] IV 05/30/17 22:50 05/31/17 18:33 (NS Flush) 2 ml UNSCH PRN .XX 05/30/17 23:00 (NS Flush) 2 ml BID .XX 05/31/17 09:00 05/31/17 08:49 (Tylenol) 650 mg Q6H PRN PO 05/30/17 23:00 06/01/17 16:02 (Morphine Inj) 2 mg Q2H PRN IV 05/30/17 23:00 (Pepcid Inj) 20 mg Q12HR IV PUSH 05/31/17 09:00 06/01/17 08:20 (Zofran Inj) 4 mg Q6H PRN IV 05/30/17 23:00 (Duoneb Neb) 1 ampule Q2HR NEB PRN INH 05/30/17 23:00 Miscellaneous Information 1 Q361D XX 05/30/17 23:00 (Chlorhexidine 2% Cloth) 3 pack Taper DAILY@04 TOP 05/31/17 04:00 05/27/18 03:59 06/01/17 04:00 (Chlorhexidine 2% Cloth) 3 pack UNSCH PRN TOP 05/30/17 23:00 (Zaida-Colace) 1 tab BID PO 05/31/17 09:00 06/01/17 08:18 (Milk Of Magnesia Liq) 30 ml Q12H PRN PO 05/30/17 23:00 (Senokot) 17.2 mg Q12H PRN PO 05/30/17 23:00 (Dulcolax Supp) 10 mg DAILY PRN RECTAL 05/30/17 23:00 (Lactulose Liq) 30 ml DAILY PRN PO 05/30/17 23:00 Levetriacetam 100 ml @ 400 mls/hr Q12HR IV 05/31/17 09:00 06/01/17 08:17 (Apresoline Inj) 20 mg Q4H PRN IV PUSH 05/30/17 23:00 05/31/17 04:19 (Trandate Inj) 10 mg Q4H PRN IV PUSH 05/30/17 23:00 05/31/17 03:44 (Heparin Inj) 5,000 units Q12HR SQ 05/31/17 09:00 06/01/17 08:19 Potassium Chloride 100 ml @ 50 mls/hr Q2H PRN IV 05/31/17 02:15 Potassium Chloride 100 ml @ 50 mls/hr Q2H PRN IV 05/31/17 02:15 (K-Lyte Cl Eff) 50 meq UNSCH PRN PO 05/31/17 02:15 Potassium Chloride 100 ml @ 25 mls/hr UNSCH PRN IV 05/31/17 02:15 Potassium Chloride 100 ml @ 50 mls/hr Q2H PRN IV 05/31/17 02:15 Magnesium Sulfate 4 gm/Sodium Chloride 100 ml @ 50 mls/hr UNSCH PRN IV 05/31/17 02:15 (Mag-Ox) 800 mg UNSCH PRN PO 05/31/17 02:15 Magnesium Sulfate 2 gm/Sodium Chloride 100 ml @ 50 mls/hr UNSCH PRN IV 05/31/17 02:15 (K-Phos) 2,000 mg Q4H PRN PO 05/31/17 02:15 Sodium Phosphate 30 mmol/Sodium Chloride 250 ml @ 42 mls/hr UNSCH PRN IV 05/31/17 02:15 (K-Phos) 2,000 mg UNSCH PRN PO/TUBE 05/31/17 02:15 Potassium Phosphate 30 mmol/ Sodium Chloride 260 ml @ 42 mls/hr UNSCH PRN IV 05/31/17 02:15 05/31/17 11:02 Nicardipine HCl 50 mg/Sodium Chloride 270 ml @ 27 mls/hr TITRATE PRN IV 05/31/17 10:00 05/31/17 08:35 (Apresoline) 75 mg TID PO 05/31/17 18:00 06/01/17 12:20 Allergies Allergies Coded Allergies penicillin G (Unverified Allergy, Intermediate, RASH/ITCHING, 05/30/17) lisinopril (Verified Adverse Reaction, Severe, Anaphylaxis, 05/31/17) Uncoded Allergies PCN / rash / itching ( Allergy, Mild, 02/14/16) Exam I&O / VS Vital Signs Date Time Temp Pulse Resp B/P (MAP) Pulse Ox O2 Delivery O2 Flow Rate FiO2 06/01/17 16:00 98.8 78 15 137/74 (95) 96 06/01/17 16:00 78 06/01/17 14:00 82 06/01/17 12:00 70 06/01/17 12:00 98.4 70 40 191/84 (119) 100 06/01/17 10:00 62 06/01/17 09:02 99 21 06/01/17 08:00 68 06/01/17 08:00 98.4 68 26 186/81 (116) 98 06/01/17 07:00 98 Room Air 06/01/17 06:00 68 06/01/17 04:00 98.0 62 12 167/80 (109) 96 06/01/17 04:00 65 06/01/17 02:00 70 06/01/17 00:00 98.1 60 20 145/74 (97) 98 06/01/17 00:00 69 05/31/17 22:00 72 05/31/17 20:00 98.0 80 25 132/74 (93) 97 05/31/17 20:00 80 05/31/17 19:00 95 Room Air 05/31/17 18:00 75 Respiratory: Lungs CTA, Non-labored respirations, BS equal Cardiology: Normal rate, Regular Rhythm Musculoskeletal: ROM, Swelling, Other Exam Comments alert, expressive aphasia, follows simple commands CN intact MOTOR 5/5 BUE Objective Micro and Labs Laboratory Tests Test 06/01/17 04:37 Triglycerides Level 45 Cholesterol Level 124 LDL Cholesterol 72 HDL Cholesterol 42.7 Cholesterol/HDL Ratio 2.90 Date/Time Source Procedure Growth Status 05/30/17 21:40 Urine Catheterized Urine Urine Culture - Final NO GROWTH IN 48 HOURS. Complete Michael Polk PhD Jun 01, 2017 17:17
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
--- NOTE | 2017-06-01 19:18 | PD.CONS ---
[facility] Service Rehabilitation Medicine Consult Requested By Michael Polk M.D. Reason for Consult Comprehensive rehabilitation evaluation. Primary Care Physician Unknown History of Present Illness Eric Gibbs is a 51-year-old male admitted [facility] 05/30/17 with change of mental status. Patient was noted to have probable left hemispheric CVA with aphasia. Brain MRI showed large subacute left frontal temporal parietal infarct. Carotid ultrasound showed no hemodynamically significant stenosis. Echocardiogram showed ejection fraction 65-70% and severe concentric LV hypertrophy Review of Systems ROS Limitations: Clinical Condition, Speech Impaired Past Family Social History Allergies: Coded Allergies: penicillin G (Unverified Allergy, Intermediate, RASH/ITCHING, 05/30/17) lisinopril (Verified Adverse Reaction, Severe, Anaphylaxis, 05/31/17) angioedema Uncoded Allergies: PCN / rash / itching (Allergy, Mild, 02/14/16) Pt states he has an allergy to PCN / will verify with Past Medical History LORRAINE aneurysm status post coiling and WILDLIFE PHOTOGRAPHER shunt placement Hypertension Past Surgical History As above Current Medications Current Medications Medications (Trade) Dose Ordered Sig/Edmundo Route Start Time Stop Time Status Last Admin (Norvasc) 10 mg DAILY PO 05/31/17 09:00 06/01/17 08:18 (Ecotrin Ec) 81 mg DAILY PO 05/31/17 09:00 06/01/17 08:18 (Catapres) 0.3 mg Q8HR PO 05/31/17 06:00 06/01/17 15:48 ([place] 5-325 Mg) 1 tab TID PRN PO 05/30/17 23:00 (Lopressor) 100 mg BID PO 05/31/17 09:00 06/01/17 08:17 (Pravachol) 20 mg HS PO 05/31/17 21:00 05/31/17 21:13 Sodium Chloride 1,000 ml @ 84 mls/hr [id number] IV 05/30/17 22:50 05/31/17 18:33 (NS Flush) 2 ml UNSCH PRN .XX 05/30/17 23:00 (NS Flush) 2 ml BID .XX 05/31/17 09:00 05/31/17 08:49 (Tylenol) 650 mg Q6H PRN PO 05/30/17 23:00 06/01/17 16:02 (Morphine Inj) 2 mg Q2H PRN IV 05/30/17 23:00 (Pepcid Inj) 20 mg Q12HR IV PUSH 05/31/17 09:00 06/01/17 08:20 (Zofran Inj) 4 mg Q6H PRN IV 05/30/17 23:00 (Duoneb Neb) 1 ampule Q2HR NEB PRN INH 05/30/17 23:00 Miscellaneous Information 1 Q361D XX 05/30/17 23:00 (Chlorhexidine 2% Cloth) 3 pack Taper DAILY@04 TOP 05/31/17 04:00 05/27/18 03:59 06/01/17 04:00 (Chlorhexidine 2% Cloth) 3 pack UNSCH PRN TOP 05/30/17 23:00 (Zaida-Colace) 1 tab BID PO 05/31/17 09:00 06/01/17 08:18 (Milk Of Magnesia Liq) 30 ml Q12H PRN PO 05/30/17 23:00 (Senokot) 17.2 mg Q12H PRN PO 05/30/17 23:00 (Dulcolax Supp) 10 mg DAILY PRN RECTAL 05/30/17 23:00 (Lactulose Liq) 30 ml DAILY PRN PO 05/30/17 23:00 Levetriacetam 100 ml @ 400 mls/hr Q12HR IV 05/31/17 09:00 06/01/17 08:17 (Apresoline Inj) 20 mg Q4H PRN IV PUSH 05/30/17 23:00 05/31/17 04:19 (Trandate Inj) 10 mg Q4H PRN IV PUSH 05/30/17 23:00 05/31/17 03:44 (Heparin Inj) 5,000 units Q12HR SQ 05/31/17 09:00 06/01/17 08:19 Potassium Chloride 100 ml @ 50 mls/hr Q2H PRN IV 05/31/17 02:15 Potassium Chloride 100 ml @ 50 mls/hr Q2H PRN IV 05/31/17 02:15 (K-Lyte Cl Eff) 50 meq UNSCH PRN PO 05/31/17 02:15 Potassium Chloride 100 ml @ 25 mls/hr UNSCH PRN IV 05/31/17 02:15 Potassium Chloride 100 ml @ 50 mls/hr Q2H PRN IV 05/31/17 02:15 Magnesium Sulfate 4 gm/Sodium Chloride 100 ml @ 50 mls/hr UNSCH PRN IV 05/31/17 02:15 (Mag-Ox) 800 mg UNSCH PRN PO 05/31/17 02:15 Magnesium Sulfate 2 gm/Sodium Chloride 100 ml @ 50 mls/hr UNSCH PRN IV 05/31/17 02:15 (K-Phos) 2,000 mg Q4H PRN PO 05/31/17 02:15 Sodium Phosphate 30 mmol/Sodium Chloride 250 ml @ 42 mls/hr UNSCH PRN IV 05/31/17 02:15 (K-Phos) 2,000 mg UNSCH PRN PO/TUBE 05/31/17 02:15 Potassium Phosphate 30 mmol/ Sodium Chloride 260 ml @ 42 mls/hr UNSCH PRN IV 05/31/17 02:15 05/31/17 11:02 Nicardipine HCl 50 mg/Sodium Chloride 270 ml @ 27 mls/hr TITRATE PRN IV 05/31/17 10:00 05/31/17 08:35 (Apresoline) 75 mg TID PO 05/31/17 18:00 06/01/17 12:20 Family History Mother : Renal failure Father : [place] Social History Prior to admission patient lived in [facility] with family Exam I&O / VS 06/01/17 06/01/17 06/02/17 15:00 23:00 07:00 Intake Total 1650 ml Output Total 1375 ml Balance 275 ml Intake Oral 480 ml IV Total 1170 ml Output Urine Total 1375 ml Stool Total 0 ml Vital Signs Date Time Temp Pulse Resp B/P (MAP) Pulse Ox O2 Delivery O2 Flow Rate FiO2 06/01/17 18:00 72 06/01/17 16:00 98.8 78 15 137/74 (95) 96 06/01/17 16:00 78 06/01/17 14:00 82 06/01/17 12:00 70 06/01/17 12:00 98.4 70 40 191/84 (119) 100 06/01/17 10:00 62 06/01/17 09:02 99 21 06/01/17 08:00 68 06/01/17 08:00 98.4 68 26 186/81 (116) 98 06/01/17 07:00 98 Room Air 06/01/17 06:00 68 06/01/17 04:00 98.0 62 12 167/80 (109) 96 06/01/17 04:00 65 06/01/17 02:00 70 06/01/17 00:00 98.1 60 20 145/74 (97) 98 06/01/17 00:00 69 05/31/17 22:00 72 05/31/17 20:00 98.0 80 25 132/74 (93) 97 05/31/17 20:00 80 General: No acute distress Respiratory: Lungs CTA, Non-labored respirations, BS equal Gastrointestinal: Positive Bowel Sounds, Non-Distended, Non-Tender Cardiovascular: Normal rate, Regular Rhythm Musculoskeletal: ROM, Swelling, Other Psychiatric: Cooperative Orientation: oriented to Self, unable to asses Place, unable to asses Time, unable to asses Situation Neurologic: Pupils (PERRLA), EOM (focuses to voice), Speech (limited verbal output the patient is able to state his name), Other (follow simple commands to move upper and lower extremities but strength testing formally is difficult) Clonus: Negative Assessment and Plan Diagnosis: (1) CVA (cerebral infarction) ICD Codes: I63.9 - Cerebral infarction, unspecified Status: Acute Assessment 1. Left frontal temporal parietal subacute infarct 2. LORRAINE aneurysm status post coiling with WILDLIFE PHOTOGRAPHER shunt placement January 2016 3. Hypertension Plan 1. Physical therapy is mobilizing a patient is now contact guard for transfers and gait 200 feet. Teeny to mobilize 2. Speech therapy has evaluated swallow and tolerating regular diet with thin liquids. Communication evaluation pending 3. Anticipate patient will be able to be discharged home with continued home health and the assistance of family as previous 4. Will follow while hospitalized and at discharge Thank you for this consult Zandra Quintero MD Jun 01, 2017 19:18
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
[2017-06-01] MEDS: PRAVASTATIN SOD 20 MG TAB PO SCH (21:08)
[2017-06-01] MEDS: SODIUM CHLOR 0.9% 1000 ML INJ 1,000 ML IV SCH ×2 (21:10→22:30)
[2017-06-02] VITALS (14 sets, daily range): BP systolic 114–168; BP diastolic 66–90; PULSE 50–69; RESP 8–17; TEMP 98.2–98.7; O2SAT 93–100
[2017-06-02] MEDS: CHLORHEXIDINE GLUCONATE 2 % 1 PACK (2 CLOTHS) TOP SCH (04:00)
[2017-06-02 05:49] LABS: AUTOMATED NEUTROPHIL # 4.2 TH/MM3 (1.8-7.7); BASOPHIL % 0.6 % (0.0-2.0); EOSINOPHIL # 0.1 TH/MM3 (0-0.4); EOSINOPHIL % 1.6 % (0.0-4.0); HEMATOCRIT 39.2 % (39.0-51.0); HEMO FLAGS DIFF FINAL; LYMPHOCYTE # 2.7 TH/MM3 (1.0-4.8); MEAN CORPUSCULAR HEMOGLOBIN 31.8 PG (27.0-34.0); MEAN CORPUSCULAR HGB CONC 33.5 % (32.0-36.0); MONO % 9.6 % (0.0-8.0); NEUT % 53.2 % (16.0-70.0); PLATELET COUNT 249 TH/MM3 (150-450); RED BLOOD COUNT 4.13 MIL/MM3 (4.50-5.90); RED CELL DISTRIBUTION WIDTH 14.9 % (11.6-17.2); WHITE BLOOD COUNT 7.8 TH/MM3 (4.0-11.0)
[2017-06-02] MEDS: cloNIDine HCL 0.3 MG TAB PO SCH ×2 (05:49→15:48)
[2017-06-02 05:52] LABS: ALKALINE PHOSPHATASE 108 U/L (45-117); ALT (GPT) 20 U/L (12-78); ANION GAP 7 MEQ/L (5-15); AST (GOT) 12 U/L (15-37); BICARBONATE 25.2 MEQ/L (21.0-32.0); BLOOD UREA NITROGEN 12 MG/DL (7-18); CHLORIDE 109 MEQ/L (98-107); GLOMERULAR FILTRATION RATE 122 ML/MIN (>89); POTASSIUM 3.6 MEQ/L (3.5-5.1); SODIUM (NA) 141 MEQ/L (136-145); TOTAL BILIRUBIN ADULT 0.4 MG/DL (0.2-1.0)
[2017-06-02] MEDS: ASPIRIN EC 81 MG TABEC PO SCH (08:36)
[2017-06-02] MEDS: hydrALAZINE HCL 25 MG TAB PO SCH ×3 (08:37→18:09)
[2017-06-02] MEDS: FAMOTIDINE 20 MG/2 ML VIAL IV PUSH SCH ×2 (08:37→19:40)
[2017-06-02] MEDS: METOPROLOL TARTRATE 100 MG TAB PO SCH ×2 (08:37→19:41)
[2017-06-02] MEDS: DOCUSATE SODIUM 50 MG/SENNA 8.6 MG TAB PO SCH ×2 (08:37→19:40)
[2017-06-02] MEDS: HEPARIN SODIUM - SQ 10,000 UNITS/ML VIAL SQ SCH ×2 (08:38→19:40)
[2017-06-02] MEDS: levETIRAcetam 1000 MG INJ 100 ML IV SCH ×2 (08:39→19:39)
[2017-06-02] MEDS: SODIUM CHLORIDE 0.9% FLUSH 10 ML FLUSH SCH ×2 (09:00→19:41)
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
[2017-06-02] MEDS ORDERED: POTASSIUM CHLORIDE 10 MEQ CONTROLLED RELEASE TAB PO ONE (18:00)
[2017-06-02] MEDS: SODIUM CHLOR 0.9% 1000 ML INJ 1,000 ML IV SCH ×2 (19:40→22:20)
[2017-06-02] MEDS: PRAVASTATIN SOD 20 MG TAB PO SCH (19:41)
[2017-06-03] VITALS (9 sets, daily range): BP systolic 137–161; BP diastolic 67–79; PULSE 50–59; RESP 14–18; TEMP 97.6–98.3; O2SAT 97–100
[2017-06-03] MEDS: cloNIDine HCL 0.3 MG TAB PO SCH ×3 (00:38→14:06)
[2017-06-03] MEDS: CHLORHEXIDINE GLUCONATE 2 % 1 PACK (2 CLOTHS) TOP SCH (02:41)
[2017-06-03] MEDS: SODIUM CHLOR 0.9% 1000 ML INJ 1,000 ML IV SCH (07:44)
[2017-06-03] MEDS: hydrALAZINE HCL 25 MG TAB PO SCH ×2 (07:45→14:06)
[2017-06-03] MEDS: HEPARIN SODIUM - SQ 10,000 UNITS/ML VIAL SQ SCH (07:45)
[2017-06-03] MEDS: FAMOTIDINE 20 MG/2 ML VIAL IV PUSH SCH (07:45)
[2017-06-03] MEDS: DOCUSATE SODIUM 50 MG/SENNA 8.6 MG TAB PO SCH (07:46)
[2017-06-03] MEDS: METOPROLOL TARTRATE 100 MG TAB PO SCH (07:46)
[2017-06-03] MEDS: ASPIRIN EC 81 MG TABEC PO SCH (07:46)
[2017-06-03] MEDS: levETIRAcetam 1000 MG INJ 100 ML IV SCH (07:47)
[2017-06-03] MEDS: SODIUM CHLORIDE 0.9% FLUSH 10 ML FLUSH SCH (09:00)
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
[2017-06-04 07:52] LABS: THROMBIN TIME FOR LA ND sec (13-19)
== END 2017-06-03 15:45 | disposition home or self-care (01) | DRG 65 ==
LOC: NEPE 21:04 → NEDA 22:48 → N03B 05-31 01:04
PROVIDERS: ADMIT Internal Medicine; ATTEND Internal Medicine
PROC: 0T9B70Z Drainage of Bladder with Drainage Device, Via Natural or Artificial Opening (ICD-10-PCS; principal; 2017-05-30)
DX: I63.512 Cerebral infarction due to unspecified occlusion or stenosis of left middle cerebral artery (principal); I16.1 Hypertensive emergency; R47.01 Aphasia; E87.6 Hypokalemia; F17.200 Nicotine dependence, unspecified, uncomplicated; I16.0 Hypertensive urgency; Z98.2 Presence of cerebrospinal fluid drainage device; I25.10 Atherosclerotic heart disease of native coronary artery without angina pectoris; I25.2 Old myocardial infarction; I35.1 Nonrheumatic aortic (valve) insufficiency; R26.2 Difficulty in walking, not elsewhere classified; E78.5 Hyperlipidemia, unspecified; Z82.49 Family history of ischemic heart disease and other diseases of the circulatory system; Z91.19 Patient's noncompliance with other medical treatment and regimen
CPT/HCPCS: 70450; 70551; 71010; 74150; 80053; 80061; 80307; 81001; 81240; 81241; 82140; 82550; 82948; 83036; 83605; 83735; 84100; 84132; 84295; 84484; 85025; 85303; 85306; 85610; 85613; 85730; 86147; 87086; 87641; 93005; 93306; 93880; 95819; 96374; 96375; J0360; J1644; J1953; J3480; J7030; J7050

== ENCOUNTER 2017-08-29 18:32 | Emergency (ER) | payer OTHER ==
[~2017-08-29] VITALS: Ht 180.3 cm; Wt 75.0 kg
[~2017-08-29 18:32] MED LIST changes: -ASPI-110 PO; +ASPI1TAB57 PO
[2017-08-29 18:33] VITALS: BP 139/85; PULSE 79; RESP 16; TEMP 98.9; O2SAT 99
[2017-08-29] MEDS ORDERED: HYDR-3799 PO (20:12)
[2017-08-29] MEDS ORDERED: ACETAMINOPHEN/HYDROcodone 325 MG/5 MG TAB PO ONE (20:15)
[2017-08-29] MEDS ORDERED: CLINDAMYCIN PHOS 600 MG/4 ML VIAL IM ONE (20:15)
[2017-08-29] MEDS ORDERED: NORC5TAB PO (20:17)
[2017-08-29] MEDS ORDERED: CLIN150C14 PO (20:17)
[2017-08-29] MEDS ORDERED: PERI0.126 SWISH-SPIT (20:18)
[2017-08-29] MEDS ORDERED: MAGICPED SWISH-SWAL (20:18)
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
== END 2017-08-29 21:50 | disposition home or self-care (01) ==
LOC: NEPD 18:32
DX: K04.7 Periapical abscess without sinus (principal); I69.821 Dysphasia following other cerebrovascular disease; F17.210 Nicotine dependence, cigarettes, uncomplicated
CPT/HCPCS: 96372